=== PATIENT | male | born 1955 | race Caucasian/White ===

== ENCOUNTER 2020-01-26 22:19 | Inpatient (IN) | payer MEDICAID, SELFPAY ==
[~2020-01-26] VITALS: Ht 152.4 cm; Wt 58.8 kg
--- NOTE | 2020-01-26 22:58 | NUR ---
PT BIBA VIA GURNEY WITH X2 EMT. PER EMT PT REPORTS N/V, DIARRHEA, ABD PAIN WITH LOSS OF APPETITE X 1 WEEK. PT TESTED POSITIVE FOR COVID-19 ON Monday01/20/20. PT AWAKE, A/O X4 AND VERBALLY RESPONSIVE. NO AUTE DISTRESS NOTED. BREATHING EVEN AND UNLABORED. PT PLACED ON FULL CM AND O2 MONITOR. SAFETY MEASURES IN PLACE. ABDOMINAL SOFT AND NON-DISTENDED. PT DENIES ANT SOB, CHEST PAIN, OR HEADACHES. MD PICKENS AT BEDSIDE FOR MSE. WILL CONTINUE TO MONITOR.
[2020-01-26 23:14] LABS: BASOPHIL % 0.3 % (0-2); PLATELET COUNT 344 x10^3mcL (130-400); RED CELL DISTRIBUTION WIDTH 13.3 % (11.5-14.5)
[2020-01-26 23:30] LABS: CALCIUM 8.5 mg/dL (8.5-10.1); CARBON DIOXIDE 24.1 mmol/L (21-32); CHLORIDE SERUM 93 mmol/L (98-107); CREATININE SERUM 0.9 mg/dL (0.7-1.3); GFR1 > 60 mL/min; GLUCOSE SERUM 160 mg/dL (74-106); POTASSIUM SERUM 3.9 mmol/L (3.5-5.1); SODIUM SERUM 127 mmol/L (136-145)
[2020-01-26 23:43] LABS: ALBUMIN 3.4 g/dL (3.4-5.0); ALKALINE PHOSPHATASE 64 U/L (46-116); ALT/SGPT 21 U/L (16-63); AST/SGOT 22 U/L (15-37); BILIRUBIN TOTAL 0.7 mg/dL (0.20-1.00); LACTIC DEHYDROGENASE (LDH) 201 U/L (100-190); TOTAL PROTEIN, SERUM 7.4 g/dL (6.4-8.2)
[2020-01-26 23:56] LABS: C REACTIVE PROTEIN 13.1 mg/dL (<=0.9)
[2020-01-27] MEDS ORDERED: GLU850 PO (00:03)
[2020-01-27] MEDS ORDERED: ACT30 PO (00:04)
[2020-01-27] MEDS ORDERED: ASPIR 8181 MG PO (00:04)
[2020-01-27] MEDS ORDERED: ZESTRIL10 MG PO (00:04)
[2020-01-27] MEDS ORDERED: ATORVASTATIN CA10 M1 PO (00:04)
[2020-01-27 00:39] LABS: microscopic required? YES; urine erythrocyte NEGATIVE (NEGATIVE)
--- NOTE | 2020-01-27 01:03 | NUR ---
PT NOTED RESTING IN GURNEY, NO ACUTE DISTRESS NOTED. BREATHING EVEN AND UNLABORED. NO SOB NOTED. PT DENIES DISCOMFORT AT THIS TIME. SAFETY MEASURES IN PLACE, BED IN LOWEST POSITION. WILL CONTINUE TO MONITOR.
[2020-01-27 02:10] LABS: MAGNESIUM 1.9 mg/dL (1.8-2.4); PHOSPHOROUS 3.3 mg/dL (2.5-4.9)
[2020-01-27 02:13] LABS: CHOLESTEROL/HDL RATIO 3.8
[2020-01-27 02:25] LABS: FREE T4 1.48 ng/dL (0.76-1.46); FREE THYROXINE INDEX 3.3 ug/dL (1.4-4.5); T4(THYROXINE) 8.5 ug/dL (4.7-13.3)
[2020-01-27 02:47] LABS: T3 TOTAL 0.79 ng/mL
--- NOTE | 2020-01-27 02:48 | NUR ---
PT RESTING IN GURNEY, NO ACUTE DISTRESS NOTED. BREATHING EVEN AND UNLABORED. PT DENIES PAIN AT THIS TIME. SAFETY MEASURES IN PLACE. BED IN LOWEST POSITION. CALL LIGHT WITHIN REACH. WILL CONTINUE TO MONITOR.
--- NOTE | 2020-01-27 03:45 | NUR ---
PT RESTING IN [facility], NO ACUTE DISTRESS NOTED. BREATHING EVEN AND UNLABORED. SAFETY MEASURES IN PLACE. CALL LIGHT WITHIN REACH. FULL CM AND O2 MONITOR IN PLACE. WILL CONTINUE TO MONITOR.
--- NOTE | 2020-01-27 04:42 | NUR ---
PT RESTING IN [facility], NO ACUTE DISTRESS NOTED. BREATHING EVEN AND UNLABORED. SAFETY MEASURES IN PLACE. FULL CM AND O2 MONITOR IN PLACE. WILL CONTINUE TO MONITOR.
--- NOTE | 2020-01-27 05:31 | NUR ---
PT RESTING IN GURNEY, NO ACUTE DISTRESS NOTED. BREATHING EVEN AND UNLABORED. BED IN LOWEST POSITION. SAFETY MEASURES IN PLACE. FULL CM AND O2 MONITOR IN PLACE. WILL CONTINUE TO MONITOR.
--- NOTE | 2020-01-27 06:19 | NUR ---
PT RESTING IN [facility], NO ACUTE DISTRESS NOTED. BREATHING EVEN AND UNLABORED. FULL CM AND O2 MONITOR IN PLACE. SAFETY MEASURES IN PLACE. WILL CONTINUE TO MONITOR.
--- NOTE | 2020-01-27 07:14 | NUR ---
RECIEVED REPORT FROM [facility]. WILL ASSUME CARE OF PT AT THIS TIME. PT NOTED RESTING IN POSITION OF COMFORT IN ER [place] [facility]. RESP E/U. NO DISTRESS NOTED. WULL CONTINUE TO MONITOR.
--- NOTE | 2020-01-27 07:15 | NUR ---
REPORT GIVEN TO NATE SKY, NATE SKY TO ASSUME CARE
--- NOTE | 2020-01-27 07:52 | NUR ---
PROVIDED BREAKFAST TRAY TO PT AT THIS TIME. PT AOOX4, RESP E/U AND DENIES PAIN OR FURTHER INJURY AT THIS TIME. 400CC URINE OUTPUT NOTED TO URINAL.
--- NOTE | 2020-01-27 08:37 | NUR ---
PT CONSUMED 100% OF BREAKFAST AT THIS TIME. CALLED PHARMACY FOR 0900 MEDS. AWIATING MEDS AT THIS TIME.
--- NOTE | 2020-01-27 09:46 | NUR ---
PT NOTED RESTING IN POSITION OF COMFORT IN ER [facility]. RESP E/U. NO DISTRESS NOTED.
--- NOTE | 2020-01-27 10:50 | NUR ---
PT NOTED RESTING IN POSITION OF COMFORT IN ER GURNEY, RESP E/U. NO DISTRESS NOTED. 300CC CLEAR YELLOW URINE NOTED TO URINAL AT THIS TIME.
--- NOTE | 2020-01-27 12:32 | NUR ---
LUNCH TRAY PROVIDED TO PT AT THIS TIME
--- NOTE | 2020-01-27 13:02 | NUR ---
RECIEVED REPORT FROM NATE SKY TO ASSUME CARE OF PT.
--- NOTE | 2020-01-27 14:47 | NUR ---
PROVIDED PT BSC AT THIS TIME. WATERY LOOSE STOOL NOTED. PT DENIES ANY COMPLAINTS AT THIS TIME.
--- NOTE | 2020-01-27 15:40 | NUR ---
CALLED TO GIVE REPORT AT THIS TIME TO [facility] SK[facility]. PER [facility] DETERMINER "SHES IN A COVID ROOM RIGHT NOW". WILL NOTIFY SENIOR EXAMINER.
--- NOTE | 2020-01-27 15:53 | NUR ---
REPORT GIVEN TO [facility] SKY AT THIS TIME.
--- NOTE | 2020-01-27 16:10 | NUR ---
RECEIVED PT FROM ED [facility]IA [email or web address], CAME IN DUE TO NAUSEA, VOMITINFG AND ABDOMINAL PAIN. AAOX4. DENIES HEADACHE/DIZZINESS. ABLE TO FOLLOW COMMANDS. NO SOB NOTED, HAS DRY COUGH, O2 SAT=99%, RA. DENIES CHEST PAIN/PRESSURE, SR ON THE MONITOR. DENIES ABDOMINAL PAIN/NAUSEA/VOMITING AT THIS TIME. STATED THAT HE HAD DIARRHEAL EPISODES X1 WEEK, HAD 2 EPISODES TODAY. VOIDS. IV SITE PATENT AND INTACT. PRIMARY NURSE [facility] AT BEDSIDE FOR CONTINUITY OF CARE
[2020-01-27 16:39] VITALS: BP 137/84
[2020-01-27 16:41] VITALS: Ht 152.4 cm; Wt 58.8 kg
--- NOTE | 2020-01-27 18:05 | NUR ---
PATIENT SITTING UP IN BED WATCHING TV. ALERT ORIENTED DENIES ANY SOB OR COUGH AT THIS TIME. IVF INFUSING WELL, SITE PATENT. AMBLULATES TO THE BATHROOM PRN. NO ACUTE DISTRESS NOTED.
[2020-01-27 21:01] VITALS: BP 135/80
[2020-01-27 21:04] LABS: AMPHETAMINE QUAL UR NONE DETECTED (See below)
--- NOTE | 2020-01-27 22:33 | NUR ---
PT ON RA NO RESP DISTRESS NOTED, PIV INTACT INFUSING WELL .
--- NOTE | 2020-01-28 00:13 | NUR ---
PT REMAINED ON RA NO RESP DISTRESS NOTED , PT'S AWAKE .
[2020-01-28 05:30] VITALS: BP 117/75
--- NOTE | 2020-01-28 06:49 | NUR ---
NO RESP DISTRESS NOTED , SAT 100% , TELE NSR .
[2020-01-28 06:58] LABS: BASOPHIL % 0.3 % (0-2); PLATELET COUNT 369 x10^3mcL (130-400); RED CELL DISTRIBUTION WIDTH 14.1 % (11.5-14.5)
[2020-01-28 07:08] LABS: CALCIUM 8.3 mg/dL (8.5-10.1); CARBON DIOXIDE 24.7 mmol/L (21-32); CHLORIDE SERUM 103 mmol/L (98-107); CREATININE SERUM 0.8 mg/dL (0.7-1.3); GFR1 > 60 mL/min; GLUCOSE SERUM 94 mg/dL (74-106); MAGNESIUM 1.9 mg/dL (1.8-2.4); PHOSPHOROUS 3.5 mg/dL (2.5-4.9); POTASSIUM SERUM 4.3 mmol/L (3.5-5.1); SODIUM SERUM 137 mmol/L (136-145)
--- NOTE | 2020-01-28 08:23 | NUR ---
PATIENT IS AOX4, RESPIRATIONS EVEN AND UNLABORED ON ROOM AIR, SINUS RHYTHM ON [employer] PROGRAM COORDINATOR. LUNGS DIMINISHED BILATERAL BASES. PT REPORTS HAVING DIARRHEA LAST EPISODE 01/26. AMBULATES WITH ASSISTANCE. IV FLUIDS INFUSING. UPDATED PATIENT ON PLAN OF CARE. WILL CONTINUE TO MONITOR.
[2020-01-28 09:28] VITALS: BP 125/73
[2020-01-28 12:55] VITALS: BP 96/68
[2020-01-28 15:55] VITALS: BP 127/47
[2020-01-28 16:56] VITALS: BP 142/85
--- NOTE | 2020-01-28 17:03 | NUR ---
RECEIVED DISCHARGE ORDER. SPOKE TO DAUGHTERMARIA DE JESUS REGARDING CONTINUED MEDICATIONS AND FOLLOW UP APPOINTMENT. FAXED MEDICAL RECORDS REQUEST PER PATIENT REQUEST. IV CATHETER REMOVED WITH CATHETER TIP INTACT. WHEELCHAIRED TO LOBBY AND PICKED UP BY DAUGHTER.
== END 2020-01-28 17:05 | disposition home or self-care (01) | DRG 137 ==
LOC: ED 22:19 → DU 01-27 00:30
PROVIDERS: Emergency Medicine; ADMIT Internal Medicine; ATTEND Internal Medicine
DX: U07.1 COVID-19 (principal); E87.1 Hypo-osmolality and hyponatremia; E11.9 Type 2 diabetes mellitus without complications; I10 Essential (primary) hypertension; E86.0 Dehydration; K52.9 Noninfective gastroenteritis and colitis, unspecified
CPT/HCPCS: 82962; 83880; 84439; 85378; G0378; J2405; J3535; J7030; U0003